=== PATIENT | male | born 1965 | race Caucasian/White ===

== ENCOUNTER 2018-01-05 21:32 | Emergency (ER) | payer OTHER ==
[~2018-01-05] VITALS: Ht 180.3 cm; Wt 122.7 kg
[~2018-01-05 21:32] MED LIST: AZITHROMYCIN250 MG PO; CIPRO500 MG PO; ENDOCET 5-3251 EACH PO; FLOVENT 11120 INHALA IH; HYDROCHLOROTHIA25 MG PO; NORCO 5/3251 TABLET PO; PREDNISONE50 MG PO; PROVENTIL,2.5 MG/3 M IH; VENTOLIN HFA18 GM IH
[2018-01-05 22:44] LABS: HEMATOCRIT 40.9 % (38.0-50.0); MCH 31.4 PG (29.0-34.0); MCHC 34.2 G/DL (30.0-36.0); MCV 91.7 FL (86-99); PLATELET COUNT 188 K/uL (156-360); RBC DIS.WIDTH-CV 13.6 % (11.8-14.6); RBC DIS.WIDTH-SD 46.2 % (39-53); RED BLOOD COUNT 4.46 M/uL (4.00-5.50); WHITE BLOOD COUNT 8.6 K/uL (4.1-10.2)
[2018-01-05 22:51] LABS: CHLORIDE 108 mEq/L (99-109); POTASSIUM 3.9 mEq/L (3.7-5.4); SODIUM 143 mEq/L (136-147)
[2018-01-05 22:53] LABS: GLUCOSE 97 mg/dL (70-99); TOTAL PROTEIN 7.1 g/dL (6.4-8.3)
[2018-01-05 22:55] LABS: TOTAL BILIRUBIN 0.2 mg/dL (0.0-1.0)
[2018-01-05 22:57] LABS: ALKALINE PHOSPHATASE 107 IU/L (3-129); CREATININE 1.3 mg/dL (0.6-1.3); GFR ESTIMATE (CALCULATED) > 59 mL/min/ (58.99-99999)
[2018-01-05 22:58] LABS: UREA NITROGEN (BUN) 16 mg/dL (9-23)
[2018-01-05 22:59] LABS: AST (GOT) 19 IU/L (2-34)
[2018-01-05 23:00] LABS: ALT (GPT) 23 IU/L (3-49)
[2018-01-06 01:06] LABS: THYROTROPIN (TSH) < 0.02 MIU/L (0.4-5.5)
[2018-01-06] MEDS ORDERED: TOBREX5 ML BOTH EYES (01:14)
[2018-01-06] MEDS ORDERED: MEDROL DOSEPAK4 MG PO (01:14)
[2018-01-06 01:26] VITALS: BP 157/111
== END 2018-01-06 01:27 | disposition home or self-care (01) ==
LOC: EME 21:32 → EXP 21:32
PROVIDERS: Physician Assistant
DX: H10.9 Unspecified conjunctivitis (principal); H05.20 Unspecified exophthalmos; E05.90 Thyrotoxicosis, unspecified without thyrotoxic crisis or storm; Z91.19 Patient's noncompliance with other medical treatment and regimen; J44.9 Chronic obstructive pulmonary disease, unspecified; I10 Essential (primary) hypertension; Z88.0 Allergy status to penicillin; F17.200 Nicotine dependence, unspecified, uncomplicated
CPT/HCPCS: 80053; 84439; 84443; 84481; 85027; 93005; 99281; 99283; J7030